=== PATIENT | male | born 1975 | race African-American/Black ===

== ENCOUNTER 2016-11-05 21:19 | Inpatient (IN) | payer MEDICARE, MEDICAID ==
--- NOTE | ~2016-11-05 | HP ---
Unit #: [id number] #: [id number] Patient: PREMA MARTINEZ [id number] [place] [address] [id number] MR#: [id number] NAME: PREMA MARTINEZ ROOM: P130 Age: 41 Sex: M Admission Date: 11/05/2016 : 1975 Attending Physician: Sagar Harkins M.D. Admitting Physician: Sagar Harkins M.D. Primary Care Physician: Primary Care Physician No HISTORY AND PHYSICAL HISTORY OF PRESENT ILLNESS Prema is a 41 year old admitted to [address] [place] [address] with depression verbalizing wanting to hurt himself. He has had numerous admissions to this facility for the same. PAST MEDICAL HISTORY 1. Long history of polysubstance abuse. 2. COPD. 3. History of seizures (?). 4. History of malingering. PAST SURGICAL HISTORY Fractured left forearm with ORIF. ALLERGIES Penicillin. SOCIAL HISTORY Smokes 1/2 pack per day. Drinks alcohol. Has a history of opioid abuse. FAMILY HISTORY Medically noncontributory. REVIEW OF SYSTEMS CONSTITUTIONAL: No fever or chills. HEENT: Denies any sore throat, ear pain or runny nose. CARDIOVASCULAR: Denies chest pain, irregular heart rhythm or palpitations. CHEST: Denies shortness of breath or cough. No hemoptysis. GASTROINTESTINAL: Denies nausea, vomiting, diarrhea or chronic constipation. ENDOCRINE: Denies history of increased thirst or urination. No recent significant weight loss or gain. GENITOURINARY: Denies dysuria, frequency, or hematuria. SKIN: Denies any rashes. HEMATOLOGIC: Denies history of increased bleeding or bruising. MUSCULOSKELETAL: Denies any hot, swollen joints. No generalized muscle pain. NEUROLOGIC: Denies problems with vision or speech. No frequent, severe headaches. No numbness, tingling or weakness in any extremities. Denies loss of bladder or bowel control. CURRENT MEDICATIONS 1. Nicotine patch 14 mg daily. Unit #: [id number] #: [id number] Patient: PREMA MARTINEZ 2. Milk of Magnesia p.r.n. 3. Maalox p.r.n. 4. Tylenol p.r.n. 5. Seroquel 200 mg q.h.s. PHYSICAL EXAMINATION GENERAL: Alert, well-nourished, in no apparent distress. VITAL SIGNS: Blood pressure 130/72, heart rate 80, respirations 16, temperature 98.6. WEIGHT: 334. HEIGHT: 6 feet 5 inches. SKIN: Warm and dry without rash or lesion. HEENT: Normocephalic. TMs not viewed. Oral and nasal passages clear. Conjunctivae clear. PERRLA. EOMs intact. NECK: Supple without lymphadenopathy or thyromegaly. HEART: Regular rate and rhythm without murmur. LUNGS: Clear. ABDOMEN: Soft, nontender. : Not done. EXTREMITIES: No evidence of cyanosis, clubbing or edema. Moves all without focal deficit. NEUROLOGICAL: Grossly within normal limits. Cranial Nerves: II: Visual javier are intact. III, IV AND : Extraocular movements are intact. Pupils are equal, round and reactive to light. V: Facial sensation is grossly normal. VII: Facial movements and expression are normal. VIII: Auditory acuity grossly intact. IX, X: Uvula is midline. Phonation is normal. XI: Patient shrugs shoulders and turns head normally. XII: Tongue protrudes in the midline. Sensory and Motor Function: Sensory and motor sensation is grossly normal. Motor: moves all extremities well. Coordination: Gait is normal. Deep Tendon Reflexes: Intact. IMPRESSION Psychiatric admission. RECOMMENDATIONS PSYCHIATRIC: Per psychiatrist. MEDICAL: See no contraindication to participate in facility's activities. MEDICAL PROGNOSIS Good. MEDICAL CONDITION Stable. Dictated by... Jacqueline Anthony P.A.-C. for Danya Perez/james TD: 11/06/2016 21:13 JOB #: [id number] Unit #: [id number] #: [id number] Patient: PREMA MARTINEZ HISTORY AND PHYSICAL Page 1 of 1 X Jacqueline Anthony HISTORY AND PHYSICAL
--- NOTE | ~2016-11-05 | PA ---
Unit #: [id number] #: [id number] Patient: RICK MARTINEZ [id number] [facility] [address] [place] [address] [id number] MR#: [id number] NAME: RICK MARTINEZ ROOM: 30 Age: 41 Sex: M Admission Date: 11/05/2016 : 1975 Date of Assessment: Attending Physician: Justin Gray M.D. Admitting Physician: Justin Gray M.D. Primary Care Physician: Primary Care Physician No PSYCHIATRIC ASSESSMENT INFORMANTS Patient, partially reliable; OLOP, reliable. CHIEF COMPLAINT "Real messed up". HISTORY OF PRESENT ILLNESS The patient is a 41-year-old man with multiple admissions to this facility, who reports that his psychosocial situation has become so stressful that he was unable to contract for safety outside of the hospital. He stated that he was being "played" for his disability money by his family. He was unable to contract for safety and was readmitted for stabilization. PAST PSYCHIATRIC HISTORY The patient has a history of multiple admissions to this facility under the care of Dr. Gray. Please see his records for previous information. FAMILY PSYCHIATRIC HISTORY Noncontributory. SOCIAL HISTORY The patient is single and living with family. Please see previous social history for details. PAST MEDICAL HISTORY Reviewed with no changes. MEDICATIONS Seroquel. ALLERGIES Penicillin and lactose intolerance. SUBSTANCE USE HISTORY The patient has an erratic history of chemical dependence. MENTAL STATUS EXAMINATION The patient presented as a mildly obese man, who appeared his stated age. He was cooperative with the examination. His mood was irritable with a congruent affect. He was alert and fully oriented with no evidence of Unit #: [id number] #: [id number] Patient: RICK MARTINEZ psychosis. He continued to report suicidal ideation, but denied homicidal ideation. Insight and judgment, fair. Fund of knowledge and abstraction, fair. ASSETS AND LIABILITIES The patient knows local resources and presents voluntarily for treatment. Liabilities include frequent hospitalization and erratic compliance. ADMITTING DIAGNOSES [place] I: Dysthymic disorder, F34.1. Major depressive disorder. [place] II: Antisocial personality disorder. [place] III: None acute. PSYCHIATRIC PLAN The patient was admitted and returned to his previous medications. He will enroll in psychotherapy groups and activities with a reality based focus. TREATMENT GOALS Resolution of SI, improvement in insight, and improvement in coping skills. DISCHARGE PLANNING Follow up with [facility]. ESTIMATED LENGTH OF STAY 5 days. Dictated by... Sagar Harkins M.D. JERSON/alex TD: 01/19/2017 11:53 JOB #: [id number] PSYCHIATRIC ASSESSMENT Page 1 of 1 X Sagar Harkins MD X PSYCHIATRIC ASSESSMENT
--- NOTE | ~2016-11-05 | PN ---
Unit #: [id number] #: [id number] Patient: RICK MARTINEZ [id number] [facility] [address] [place] [address] [id number] MR#: [id number] NAME: RICK MARTINEZ ROOM: 30 Age: 41 Sex: M Admission Date: 11/05/2016 : 1975 Attending Physician: Justin Gray M.D. Admitting Physician: Justin Gray M.D. Primary Care Physician: Primary Care Physician Kimberlee MONTAÑO PROGRESS NOTES DATE 11/10/2016 DISCUSSION The patient continues to complain of hopeless and suicidal ideation related to his current living situation. Once again the patient finds himself homeless and penniless without resources until "I get paid again." Realistic expectations within inpatient care are discussed with the patient at some length today. Dictated by... Justin Gray M.D. CB/abi TD: 11/11/2016 00:57 JOB #: [id number] [facility] PROGRESS NOTES Page 1 of 1 X Justin Gray MD PROGRESS NOTE
--- NOTE | ~2016-11-05 | PN ---
Unit #: [id number] #: [id number] Patient: RICK MARTINEZ [id number] [facility] [address] [place] [address] [id number] MR#: [id number] NAME: RICK MARTINEZ ROOM: 30 Age: 41 Sex: M Admission Date: 11/05/2016 : 1975 Attending Physician: Justin Gray M.D. Admitting Physician: Justin Gray M.D. Primary Care Physician: Primary Care Physician Kimberlee MONTAÑO PROGRESS NOTES DATE 11/14/2016 DISCUSSION The patient is noted to be jovially interacting with peers prior to becoming aware that he is under the observation of this physician. Once interview begins, however, the patient assumes a hangdog attitude, continued to complain of dysphoric mood related to his current homeless situation. I have again expressed to the patient realistic expectations of inpatient care, and I have told him to expect discharge within the next day or so. Dictated by... Justin Gray M.D. CB/berhane TD: 11/14/2016 15:06 JOB #: [id number] [facility] PROGRESS NOTES Page 1 of 1 X Justin Gray MD PROGRESS NOTE
--- NOTE | ~2016-11-05 | PN ---
Unit #: [id number] #: [id number] Patient: RICK MARTINEZ [id number] [facility] [address] [place] [address] [id number] I MR#: [id number] NAME: RICK MARTINEZ ROOM: 30 Age: 41 Sex: M Admission Date: 11/05/2016 : 1975 Attending Physician: Justin Gray M.D. Admitting Physician: Justin Gray M.D. Primary Care Physician: Primary Care Physician Kimberlee MONTAÑO PROGRESS NOTES DATE 11/16/2016 DISCUSSION The patient is complaining of poor sleep and request an increase in his Seroquel dose. We will increase to 300 mg. I expect a.m. discharge and the patient is informed of same. Dictated by... Justin Gray M.D. CB/abi TD: 11/17/2016 03:29 JOB #: [id number] [facility] PROGRESS NOTES Page 1 of 1 X Justin Gray MD PROGRESS NOTE
--- NOTE | ~2016-11-05 | DS ---
Unit #: [id number] #: [id number] Patient: RICK MARTINEZ [id number] [facility] [address] [place] [address] [id number] I MR#: [id number] NAME: RICK MARTINEZ ROOM: 30 Age: 41 Sex: M Admission Date: 11/05/2016 : 1975 Discharge Date: 11/17/2016 Attending Physician: Justin Gray M.D. Primary Care Physician: Primary Care Physician No DISCHARGE SUMMARY REASON FOR ADMISSION The patient is a 41-year-old male admitted after he had presented to this facility claiming to be suicidal after having been rendered once again homeless. HOSPITAL COURSE The patient was admitted to the [address] [place] [address] and placed on suicide precautions. The patient's care was assumed by this physician on 11/10/2016. The patient was continued on Seroquel with dosage increase to 300 mg. No other medication changes were undertaken. During the patient's stay in the hospital, he continued to insist that he be provided with lodging once he had left the hospital. It was as always explained to the patient that this could not be arranged. Finally, by 11/17, the patient was found once again to be absent from therapeutic activity after having been gently confronted regarding his failure to participate within the therapeutic milieu. It was clear at that point that the patient was not benefitting from ongoing hospitalization and discharge was ordered. The patient was given several days notice prior to his discharge so that he could make arrangements for disposition but to the knowledge of this physician, made no efforts to arrange for any disposition apart from going to a homeless usp. DISCHARGE DIAGNOSES 1. Dysthymic disorder. 2. Antisocial personality disorder. DISCHARGE MEDICATIONS The patient is discharged on the following medication, Seroquel 300 mg at bedtime for mood stabilization. PROGNOSIS Considered poor given his lack of resources and the profundity of his sociopathy. DIET AND ACTIVITY No dietary or physical restrictions were placed on the patient at time of discharge. Dictated by... Unit #: [id number] #: [id number] Patient: RICK MARTINEZ Justin Gray M.D. CB/james TD: 11/17/2016 15:03 JOB #: [id number] DISCHARGE SUMMARY Page 1 of 1 X Justin Gray MD DISCHARGE SUMMARY
--- NOTE | ~2016-11-05 | PN ---
Unit #: [id number] #: [id number] Patient: RICK MARTINEZ [id number] [facility] [address] [place] [address] [id number] I MR#: [id number] NAME: RICK MARTINEZ ROOM: 30 Age: 41 Sex: M Admission Date: 11/05/2016 : 1975 Attending Physician: Justin Gray M.D. Admitting Physician: Justin Gray M.D. Primary Care Physician: Kimberlee Primary Care Physician DANYEL PROGRESS NOTES DATE 11/12/2016. DISCUSSION The patient is found in his room today during a therapeutic activity and was sternly confronted regarding his failure to participate. He continues to complain that he has not been given information regarding homeless resources. His expectations of inpatient care have been formally redirected and it is my expectation that the patient should be discharged by the end of the week. Dictated by... Justin Gray M.D. CB/gz TD: 11/12/2016 13:45 JOB #: [id number] [facility] PROGRESS NOTES Page 1 of 1 X Justin Gray MD X PROGRESS NOTE
--- NOTE | ~2016-11-05 | PN ---
Unit #: [id number] #: [id number] Patient: RICK MARTINEZ [id number] [facility] [address] [place] [address] [id number] I MR#: [id number] NAME: RICK MARTINEZ ROOM: P130 Age: 41 Sex: M Admission Date: 11/05/2016 : 1975 Attending Physician: Justin Gray M.D. Admitting Physician: Justin Gray M.D. Primary Care Physician: Primary Care Physician Kimberlee MONTAÑO PROGRESS NOTES DATE 11/13/2016 DISCUSSION The patient remains seclusive to room with little participation within the therapeutic milieu. He continues to lament his inability to afford what he considers suitable housing. I have certainly redirected the patient's expectations of inpatient care today and expect a.m. discharge. Dictated by... Justin Gray M.D. CB/bzg TD: 11/13/2016 14:43 JOB #: [id number] [facility] PROGRESS NOTES Page 1 of 1 X Justin Gray MD PROGRESS NOTE
--- NOTE | ~2016-11-05 | PN ---
Unit #: [id number] #: [id number] Patient: RICK MARTINEZ [id number] [facility] [address] [place] [address] [id number] I MR#: [id number] NAME: RICK MARTINEZ ROOM: 30 Age: 41 Sex: M Admission Date: 11/05/2016 : 1975 Attending Physician: Justin Gray M.D. Admitting Physician: Justin Gray M.D. Primary Care Physician: Primary Care Physician Kimberlee MONTAÑO PROGRESS NOTES DATE 11/11/2016 DISCUSSION The patient seems much brighter today and voices no suicidal ideation. He states that he wishes to see the social scientist "so he can find me a room." I have explained to the patient that this will not occur, and that he will be given information regarding homeless facilities outside the hospital. Dictated by... Justin Gray M.D. CB/bzkenya TD: 11/11/2016 14:23 JOB #: [id number] [facility] PROGRESS NOTES Page 1 of 1 X Justin Gray MD X PROGRESS NOTE
--- NOTE | ~2016-11-05 | PN ---
Unit #: [id number] #: [id number] Patient: RICK MARTINEZ [id number] [facility] [address] [place] [address] [id number] MR#: [id number] NAME: RICK MARTINEZ ROOM: 30 Age: 41 Sex: M Admission Date: 11/05/2016 : 1975 Attending Physician: Justin Gray M.D. Admitting Physician: Justin Gray M.D. Primary Care Physician: Primary Care Physician Kimberele MONTAÑO PROGRESS NOTES DATE 11/15/2016 DISCUSSION The patient continues to endorse positive suicidal ideation and hopelessness. I again firmly redirected his expectations of inpatient care but given his ongoing threats of suicide including a specific threat to "jump in the river," I feel unable to release the patient from the hospital today. Dictated by... Justin Gray M.D. CB/james TD: 11/15/2016 15:27 JOB #: [id number] [facility] PROGRESS NOTES Page 1 of 1 X Justin Gray MD X PROGRESS NOTE
[~2016-11-05 21:19] MED LIST: ACETAMINOPHEN325 MG PO; ALBUTEROL17 GM INH; GRALISE1 EACH PO; LYRICA; MOTRIN600 MG PO; NO MEDICATIONS; OXYCODONE-ACET1 EAC1 PO; PAIN RELIEF325 M1; PERCOCET 10-651 EACH PO; SOLU MEDROL IV; TOPAMAX PO; ZOLOFT100 MG PO
[2016-11-06 12:28] LABS: BASOPHIL% 0.5 % (0-2.5); EOSINOPHIL# 0.2 X10e3 (0-0.7); EOSINOPHIL% 3.1 % (0.0-7.0); HEMATOCRIT 45.1 % (38.0-50.0); HEMOGLOBIN 14.7 gm/dL (13.0-16.0); LYMPHOCYTE# 2.1 X10e3 (1.0-3.5); MEAN CELL VOLUME 92.5 FL (83-96); MEAN CORPUSCULAR HEMOGLOBIN 30.2 PG (28-34); MEAN CORPUSCULAR HGB CONC 32.6 g/dL (30-36); MEAN PLATELET VOLUME 8.4 FL (6.5-11.5); MONOCYTE# 0.4 X10e3 (0-1.0); NEUTROPHIL# 2.3 X10e3 (1.5-7.1); NEUTROPHIL% 45.4 % (40-75); PLATELET COUNT 278 X10e3 (140-420); RED BLOOD COUNT 4.88 X10e (3.90-5.60); RED CELL DISTRIBUTION WIDTH 14.8 % (11.0-15.5)
[2016-11-06 12:41] LABS: ALBUMIN SERUM 3.9 g/dL (3.5-5.0); BILIRUBIN,TOTAL 0.7 mg/dL (0.2-2.0); CALCIUM SERUM 9.3 mg/dL (8.4-10.2); CREATININE SERUM 0.7 mg/dL (0.6-1.4); GLOM FILT RATE Estimated 135.9 mL/min (>60); POTASSIUM 4.3 mmol/L (3.5-5.1); PROTEIN TOTAL SERUM 6.9 g/dL (6.0-8.3)
[2016-11-06 12:43] LABS: DIFF IND NO
== END 2016-11-17 14:27 | disposition home or self-care (01) | DRG 881 ==
LOC: P1S 21:19
PROVIDERS: Psychiatry & Neurology Psychiatry
DX: F34.1 Dysthymic disorder (principal); J44.9 Chronic obstructive pulmonary disease, unspecified; F60.2 Antisocial personality disorder; F17.210 Nicotine dependence, cigarettes, uncomplicated; Z88.0 Allergy status to penicillin; Z59.0 Homelessness
CPT/HCPCS: 80053; 85025

== ENCOUNTER 2016-12-12 20:32 | Inpatient (IN) | payer OTHER ==
--- NOTE | ~2016-12-12 | PN ---
Unit #: [id number] #: [id number] Patient: RICK MARTINEZ [id number] [facility] [address] [place] [address] [id number] MR#: [id number] NAME: RICK MARTINEZ ROOM: [facility] Age: 41 Sex: M Admission Date: 12/13/2016 : 1975 Attending Physician: Justin Gray M.D. Admitting Physician: Justin Gray M.D. Primary Care Physician: Primary Care Physician Kimberlee MONTAÑO PROGRESS NOTES DATE 12/15/2016 DISCUSSION The patient is actually attending a group therapy on the unit today which is unusual for him. He continues to complain of dysphoric mood related to his current homeless status. Dictated by... Justin Gray M.D. CB/abi TD: 12/16/2016 02:32 JOB #: [id number] [facility] PROGRESS NOTES Page 1 of 1 X Justin Gray MD PROGRESS NOTE
--- NOTE | ~2016-12-12 | PN ---
Unit #: [id number] #: [id number] Patient: RICK MARTINEZ [id number] [facility] [address] [place] [address] [id number] I MR#: [id number] NAME: RICK MARTINEZ ROOM: P121 Age: 41 Sex: M Admission Date: 12/13/2016 : 1975 Attending Physician: Justin Gray M.D. Admitting Physician: Justin Gray M.D. Primary Care Physician: Primary Care Physician Kimberlee MONTAÑO PROGRESS NOTES DATE 12/17/2016 DISCUSSION The patient is abed today. He states that he is experiencing a.m. discharge, and we will expect to order discharge at that time. Dictated by... Justin Gray M.D. CB/berhane TD: 12/17/2016 14:09 JOB #: [id number] [facility] PROGRESS NOTES Page 1 of 1 X Justin Gray MD X PROGRESS NOTE
--- NOTE | ~2016-12-12 | PA ---
Unit #: [id number] #: [id number] Patient: RICK MARTINEZ [id number] [facility] [address] [place] [address] [id number] MR#: [id number] NAME: RICK MARTINEZ ROOM: P121 Age: 41 Sex: M Admission Date: 12/13/2016 : 1975 Date of Assessment: 12/13/2016 Attending Physician: Justin Gray M.D. Admitting Physician: Justin Gray M.D. Primary Care Physician: Primary Care Physician No PSYCHIATRIC ASSESSMENT IDENTIFYING INFORMATION The patient is a 41-year-old single homeless male admitted after voicing suicidal ideation at [facility]. INFORMANT(S) Patient and chart. RELIABILITY Good. CHIEF COMPLAINT None given. HISTORY OF PRESENT ILLNESS The patient is a 41-year-old male who is presently homeless. He is admitted after he had presented to [facility] voicing positive suicidal ideation related to the anniversary of the of his mother. The patient remains homeless and states that he is "bouncing from retirement to retirement." He is currently on Seroquel 300 mg at h.s. This is the only prescribed psychotropic medication. He continues to endorse positive suicidal ideation when seen today though he is noted to be reading comfortably in his room prior to evaluation. For a more complete history of present illness, please refer to multiple previous dictated notes. PAST PSYCHIATRIC HISTORY Reviewed, no changes. FAMILY HISTORY Noncontributory. SOCIAL HISTORY Reviewed, no changes. MEDICAL HISTORY Reviewed, no changes. MEDICATION HISTORY Seroquel. ALLERGIES Penicillin, milk. Unit #: [id number] #: [id number] Patient: RICK MARTINEZ MENTAL STATUS EXAM At this time, reveals the patient to be an obese male appearing his stated age. He is in no apparent physical distress at time of examination. He is awake, alert, oriented in all spheres. His mood is mildly dysphoric. His affect congruent. Speech is generally relevant and coherent. There are no gross deficits in memory or cognition noted. Intelligence is judged to be in the average range based on fund of knowledge. The patient is cooperative throughout the interview. He is currently endorsing positive suicidal ideation. He denies homicidal ideation. He denies any psychotic symptoms. His judgement and insight appear to be reasonably intact. ASSETS AND LIABILITIES Patient's assets to be assessed. Liabilities, lack of resources, homelessness. ADMITTING DIAGNOSES 1. Dysthymic disorder. 2. Antisocial personality disorder. PSYCHIATRIC PLAN/TREATMENT GOALS The patient remains hospitalized for safety and stabilization. We will continue the patient's previously prescribed Seroquel and I will ask the patient's social media content manager to see him regarding his homeless status. ESTIMATED LENGTH OF STAY Five to seven days. Dictated by... Justin Gray M.D. LANE/james TD: 12/13/2016 16:06 JOB #: [id number] PSYCHIATRIC ASSESSMENT Page 1 of 1 X Justin Gray MD X PSYCHIATRIC ASSESSMENT
--- NOTE | ~2016-12-12 | PN ---
Unit #: [id number] #: [id number] Patient: RICK MARTINEZ [id number] [facility] [address] [place] [address] [id number] MR#: [id number] NAME: RICK MARTINEZ ROOM: P121 Age: 41 Sex: M Admission Date: 12/13/2016 : 1975 Attending Physician: Justin Gray M.D. Admitting Physician: Justin Gray M.D. Primary Care Physician: Primary Care Physician Kimberlee MONTAÑO PROGRESS NOTES DATE 12/14/2016 DISCUSSION The patient voices no new complaints today but continues to endorse positive suicidal ideation while appearing quite comfortable in his interactions with peers and staff. Dictated by... Justin Gray M.D. CB/abi TD: 12/15/2016 21:15 JOB #: [id number] [facility] PROGRESS NOTES Page 1 of 1 X Justin Gray MD X PROGRESS NOTE
--- NOTE | ~2016-12-12 | HP ---
Unit #: [id number] #: [id number] Patient: RICK MARTINEZ [id number] [place] [address] [id number] MR#: [id number] NAME: RICK MARTINEZ ROOM: P121 Age: 41 Sex: M Admission Date: 12/13/2016 : 1975 Attending Physician: Justin Gray M.D. Admitting Physician: Justin Gray M.D. Primary Care Physician: Primary Care Physician No HISTORY AND PHYSICAL HISTORY OF PRESENT ILLNESS The patient is a 41-year-old male who states he is here due to depression. PAST MEDICAL HISTORY Significant for multiple sclerosis. PAST SURGICAL HISTORY Significant for biopsy of some sort in 2005. ALLERGIES Penicillin, milk and oats. SOCIAL HISTORY Positive for smoking and alcohol. FAMILY HISTORY Noncontributory. REVIEW OF SYSTEMS CONSTITUTIONAL: No fever or chills. HEENT: Denies any sore throat, ear pain or runny nose. CARDIOVASCULAR: Denies chest pain, irregular heart rhythm or palpitations. CHEST: Denies shortness of breath or cough. No hemoptysis. GASTROINTESTINAL: Denies nausea, vomiting, diarrhea or chronic constipation. ENDOCRINE: Denies history of increased thirst or urination. No recent significant weight loss or gain. GENITOURINARY: Denies dysuria, frequency, or hematuria. SKIN: Denies any rashes. HEMATOLOGIC: Denies history of increased bleeding or bruising. MUSCULOSKELETAL: Denies any hot, swollen joints. No generalized muscle pain. NEUROLOGIC: Denies problems with vision or speech. No frequent, severe headaches. No numbness, tingling or weakness in any extremities. Denies loss of bladder or bowel control. CURRENT MEDICATIONS Seroquel 300 mg p.o. q.h.s. PHYSICAL EXAMINATION VITAL SIGNS: Temperature not available, blood pressure 131/81, heart rate 87, respirations 18. HEIGHT: 6 feet 5 inches. Unit #: [id number] #: [id number] Patient: RICK MARTINEZ WEIGHT: 347 pounds. SKIN: Warm and dry without rash or lesion. Multiple tattoos to the right deltoid, bilateral chest, right scapular area, left arm. HEENT: Normocephalic. TMs not viewed. Oral and nasal passages clear. Conjunctivae clear. PERRLA. EOMs intact. NECK: Supple without lymphadenopathy or thyromegaly. HEART: Regular rate and rhythm without murmur. LUNGS: Clear. ABDOMEN: Soft, nontender, without masses or hepatosplenomegaly. : Not done. EXTREMITIES: No evidence of cyanosis, clubbing or edema. Moves all without focal deficit. NEUROLOGICAL: Grossly within normal limits. Cranial Nerves: II: Visual javier are intact. III, IV AND : Extraocular movements are intact. Pupils are equal, round and reactive to light. V: Facial sensation is grossly normal. VII: Facial movements and expression are normal. VIII: Auditory acuity grossly intact. IX, X: Uvula is midline. Phonation is normal. XI: Patient shrugs shoulders and turns head normally. XII: Tongue protrudes in the midline. Sensory and Motor Function: Sensory and motor sensation is grossly normal. Motor: moves all extremities well. Coordination: Gait is normal. Deep Tendon Reflexes: Intact. IMPRESSION Psychiatric admission. RECOMMENDATIONS PSYCHIATRIC: Per psychiatrist. MEDICAL: No contraindications to participate in facility's activities. MEDICAL PROGNOSIS Good. Dictated by... Rafael Clifford/james TD: 12/13/2016 18:52 JOB #: [id number] HISTORY AND PHYSICAL Page 1 of 1 X Sandra Pardo APR X HISTORY AND PHYSICAL
--- NOTE | ~2016-12-12 | DS ---
Unit #: [id number] #: [id number] Patient: RICK MARTINEZ [id number] [facility] [address] [place] [address] [id number] MR#: [id number] NAME: RICK MARTINEZ ROOM: [facility] Age: 41 Sex: M Admission Date: 12/13/2016 : 1975 Discharge Date: 12/18/2016 Attending Physician: Justin Gray M.D. Primary Care Physician: No Primary Care Physician DISCHARGE SUMMARY REASON FOR ADMISSION Patient is a 41-year-old homeless, -Malawian male admitted, claiming to be suicidal. HOSPITAL COURSE The patient is admitted to the [address] [place] [address] unit and placed on suicide precautions. Home medications were continued. The patient's participation within the therapeutic milieu was a bit improved during this hospitalization. By 12/18/2016 the patient requested discharge and it was so ordered. FINAL DIAGNOSES 1. Dysthymic disorder. 2. Social personal disorder. 3. Obesity. DISPOSITION ON DISCHARGE The patient is discharged on the following medications: Seroquel 300 mg q.h.s. for mood stabilization. DIET AND ACTIVITY No dietary or physical restrictions were placed upon the patient at the time of discharge. FOLLOWUP Followup will take place through the auspices of community mental health resources. PROGNOSIS The patient's prognosis is considered fair. Dictated by... Justin Gray M.D. CB/oswald TD: 12/19/2016 09:43 JOB #: [id number] Unit #: [id number] #: [id number] Patient: RICK MARTINEZ DISCHARGE SUMMARY Page 1 of 1 X Justin Gray MD X DISCHARGE SUMMARY
--- NOTE | ~2016-12-12 | PN ---
Unit #: [id number] #: [id number] Patient: RICK MARTINEZ [id number] [facility] [address] [place] [address] [id number] MR#: [id number] NAME: RICK MARTINEZ ROOM: P121 Age: 41 Sex: M Admission Date: 12/13/2016 : 1975 Attending Physician: Justin Gray M.D. Admitting Physician: Justin Gray M.D. Primary Care Physician: Primary Care Physician Kimberlee MONTAÑO PROGRESS NOTES DATE 12/16/2016 DISCUSSION The patient is move active within the therapeutic milieu. He continues to endorse hopelessness and suicidal ideation during today's interview. He has been more active within the therapeutic milieu than during previous hospitalizations. Dictated by... Justin Gray M.D. CB/berhane TD: 12/16/2016 14:56 JOB #: [id number] DANYEL PROGRESS NOTES Page 1 of 1 X Justin Gray MD PROGRESS NOTE
== END 2016-12-18 14:50 | disposition home or self-care (01) | DRG 881 ==
LOC: P1S 12-13 00:54
DX: F34.1 Dysthymic disorder (principal); R45.851 Suicidal ideations; Z68.41 Body mass index [BMI] 40.0-44.9, adult; Z59.0 Homelessness; F60.2 Antisocial personality disorder; Z88.0 Allergy status to penicillin; Z91.011 Allergy to milk products; G35 Multiple sclerosis; Z91.018 Allergy to other foods; F17.210 Nicotine dependence, cigarettes, uncomplicated; E66.9 Obesity, unspecified

== ENCOUNTER 2017-01-06 18:00 | Inpatient (IN) | payer OTHER ==
--- NOTE | ~2017-01-06 | PA ---
Unit #: [id number] #: [id number] Patient: RICK MARTINEZ [id number] [facility] [address] [place] [address] [id number] MR#: [id number] NAME: RICK MARTINEZ ROOM: P132 Age: 41 Sex: M Admission Date: 01/06/2017 : 1975 Date of Assessment: 01/07/2017 Attending Physician: Justin Gray M.D. Admitting Physician: Justin Gray M.D. Primary Care Physician: Primary Care Physician No PSYCHIATRIC ASSESSMENT IDENTIFYING INFORMATION The patient is a 41-year-old male well-known to this physician admitted in transfer from [facility] where he presented voicing positive suicidal ideation. INFORMANT(S) Patient and chart. RELIABILITY Good. CHIEF COMPLAINT None given. HISTORY OF PRESENT ILLNESS The patient is a 41-year-old homeless male admitted after he had presented at [facility] claiming to be homeless. The patient reports that he has been banned from virtually every long term in the city and finds himself unable to find a place to live. He has previously been prescribed Seroquel at this facility but his compliance with medications has always been questionable. He denies abuse of any psychoactive substances. The patient continues to endorse positive suicidal ideation and hopelessness during today's interview. For a more complete history of present illness, please refer to previous dictated notes. PAST PSYCHIATRIC HISTORY Reviewed, no changes. FAMILY HISTORY/SOCIAL HISTORY Reviewed, no changes. MEDICAL HISTORY Reviewed, no changes. MEDICATION HISTORY Seroquel. ALLERGIES Penicillin. MENTAL STATUS EXAM At this time, reveals the patient to be a large statured obese Unit #: [id number] #: [id number] Patient: IRCK MARTINEZ Lao male appearing his stated age. He is in no apparent physical distress at time of examination. He is awake, alert, and oriented in all spheres. His mood is somewhat exaggeratedly dysphoric. His affect is constricted. Speech is generally relevant and coherent. There are no gross deficits in memory or cognition noted. Intelligence is judged to be in the average range based on fund of knowledge. The patient is generally cooperative during interview. He continues to endorse positive suicidal ideation. He denies homicidal ideation. He denies any psychotic symptoms. His judgement and insight appear to be at baseline. ASSETS AND LIABILITIES Patient's assets to be assessed. Liabilities, homelessness, lack of resources, sociopathy. ADMITTING DIAGNOSES 1. Dysthymic disorder. 2. Antisocial personality disorder. PSYCHIATRIC PLAN/TREATMENT GOALS The patient remains hospitalized for safety and stabilization. Suicide precautions are in place and we will continue Seroquel. The patient's expectations of inpatient care are today gently but firmly redirected particularly with regards to this facility's ability to "place him" in any sort of disposition given the fact that he has been barred from virtually every homeless long term in [facility] given his obnoxious and sociopathic behavior. ESTIMATED LENGTH OF STAY Seven days. Dictated by... Justin Gray M.D. LANE/james TD: 01/07/2017 15:02 JOB #: [id number] PSYCHIATRIC ASSESSMENT Page 1 of 1 X Justin Gray MD X PSYCHIATRIC ASSESSMENT
--- NOTE | ~2017-01-06 | HP ---
Unit #: [id number] #: [id number] Patient: PREMA MARTINEZ [id number] [place] [address] [id number] MR#: [id number] NAME: PREMA MARTINEZ ROOM: P132 Age: 41 Sex: M Admission Date: 01/06/2017 : 1975 Attending Physician: Justin Gray M.D. Admitting Physician: Justin Gray M.D. Primary Care Physician: Primary Care Physician No HISTORY AND PHYSICAL HISTORY OF PRESENT ILLNESS Prema is a 41 year old admitted to [address] [place] [address] with depression and verbalizing wanting to hurt himself. PAST MEDICAL HISTORY 1. Long history of polysubstance abuse 2. History of malingering 3. COPD 4. History of seizures (?) PAST SURGICAL HISTORY Fractured left forearm with ORIF ALLERGIES Penicillin SOCIAL HISTORY Smokes one-half pack per day. Drinks alcohol. Has a history of opioid abuse. FAMILY HISTORY Medically noncontributory. REVIEW OF SYSTEMS CONSTITUTIONAL: No fever or chills. HEENT: Denies any sore throat, ear pain or runny nose. CARDIOVASCULAR: Denies chest pain, irregular heart rhythm or palpitations. CHEST: Denies shortness of breath or cough. No hemoptysis. GASTROINTESTINAL: Denies nausea, vomiting, diarrhea or chronic constipation. ENDOCRINE: Denies history of increased thirst or urination. No recent significant weight loss or gain. GENITOURINARY: Denies dysuria, frequency, or hematuria. SKIN: Denies any rashes. HEMATOLOGIC: Denies history of increased bleeding or bruising. MUSCULOSKELETAL: Denies any hot, swollen joints. No generalized muscle pain. NEUROLOGIC: Denies problems with vision or speech. No frequent, severe headaches. No numbness, tingling or weakness in any extremities. Denies loss of bladder or bowel control. CURRENT MEDICATIONS Unit #: [id number] #: [id number] Patient: PREMA MARTINEZ 1. Norvasc 5 mg q day 2. Milk of Magnesia p.r.n. 3. Maalox p.r.n. 4. Tylenol p.r.n. 5. Seroquel 300 mg q.h.s. 6. Nicotine patch 14 mg q day PHYSICAL EXAMINATION GENERAL: Alert, well-nourished, in no apparent distress. VITAL SIGNS: Blood pressure 140/70, heart rate 80, respirations 16, temperature 98.6. WEIGHT: 324 pounds. HEIGHT: 6'5". SKIN: Warm and dry without rash or lesion. HEENT: Normocephalic. TMs not viewed. Oral and nasal passages clear. Conjunctivae clear. Pupils equal, round and reactive to light and accommodation. Extraocular movements intact. NECK: Supple without lymphadenopathy or thyromegaly. HEART: Regular rate and rhythm without murmur. LUNGS: Clear. ABDOMEN: Soft, nontender. : Not done. EXTREMITIES: No evidence of cyanosis, clubbing or edema. Moves all extremities without focal deficit. NEUROLOGICAL: Grossly within normal limits. Cranial Nerves: II: Visual javier are intact. III, IV AND : Extraocular movements are intact. Pupils are equal, round and reactive to light. V: Facial sensation is grossly normal. VII: Facial movements and expression are normal. VIII: Auditory acuity grossly intact. IX, X: Uvula is midline. Phonation is normal. XI: Patient shrugs shoulders and turns head normally. XII: Tongue protrudes in the midline. Sensory and Motor Function: Sensory and motor sensation is grossly normal. Motor: moves all extremities well. Coordination: Gait is normal. Deep Tendon Reflexes: Intact. IMPRESSION Psychiatric admission RECOMMENDATIONS PSYCHIATRIC: Per psychiatrist. MEDICAL: I see no contraindications to participating in facility's activities. MEDICAL PROGNOSIS Good. MEDICAL CONDITION Stable. Dictated by... Jacqueline Anthony P.A.-C. for Esthela Zurita M.D. Unit #: [id number] #: [id number] Patient: PREMA MARTINEZ FLO/abi TD: 01/07/2017 22:41 JOB #: [id number] HISTORY AND PHYSICAL Page 1 of 1 X Jacqueline Anthony HISTORY AND PHYSICAL
[2017-01-07 09:41] LABS: BASOPHIL% 0.5 % (0-2.5); EOSINOPHIL# 0.1 X10e3 (0-0.7); EOSINOPHIL% 2.4 % (0.0-7.0); HEMATOCRIT 42.9 % (38.0-50.0); LYMPHOCYTE# 2.1 X10e3 (1.0-3.5); LYMPHOCYTE% 39.6 % (17.0-45.0); MEAN CELL VOLUME 91.7 FL (83-96); MEAN CORPUSCULAR HEMOGLOBIN 29.8 PG (28-34); MEAN CORPUSCULAR HGB CONC 32.5 g/dL (30-36); MEAN PLATELET VOLUME 8.2 FL (6.5-11.5); MONOCYTE# 0.5 X10e3 (0-1.0); MONOCYTE% 8.5 % (3.0-12.0); NEUTROPHIL# 2.6 X10e3 (1.5-7.1); PLATELET COUNT 285 X10e3 (140-420); RED BLOOD COUNT 4.68 X10e (3.90-5.60); RED CELL DISTRIBUTION WIDTH 15.5 % (11.0-15.5); WHITE BLOOD COUNT 5.3 X10e3 (4.0-10.5)
[2017-01-07 10:00] LABS: DIFF IND NO
[2017-01-07 10:24] LABS: ALBUMIN SERUM 3.9 g/dL (3.5-5.0); BILIRUBIN,TOTAL 1.1 mg/dL (0.2-2.0); BUN/CREATININE RATIO 18.33; CALCIUM SERUM 9.2 mg/dL (8.4-10.2); CREATININE SERUM 0.6 mg/dL (0.6-1.4); GLOM FILT RATE Estimated 144.8 mL/min (>60); POTASSIUM 4.2 mmol/L (3.5-5.1)
== END 2017-01-08 22:24 | disposition home or self-care (01) | DRG 881 ==
LOC: P1S 21:57
PROVIDERS: Specialist
DX: F34.1 Dysthymic disorder (principal); R45.851 Suicidal ideations; F60.2 Antisocial personality disorder; Z88.0 Allergy status to penicillin; Z59.0 Homelessness; F17.210 Nicotine dependence, cigarettes, uncomplicated
CPT/HCPCS: 80053; 85025

== ENCOUNTER 2017-03-13 15:00 | Inpatient (IN) | payer MEDICARE, OTHER ==
--- NOTE | ~2017-03-13 | HP ---
Unit #: [id number] #: [id number] Patient: PREMA MARTINEZ [id number] [place] [address] [id number] MR#: [id number] NAME: PREMA MARTINEZ ROOM: 30 Age: 41 Sex: M Admission Date: 03/13/2017 : 1975 Attending Physician: Justin Gray M.D. Admitting Physician: Justin Gray M.D. Primary Care Physician: Primary Care Physician No HISTORY AND PHYSICAL HISTORY OF PRESENT ILLNESS Prema is a 41-year-old male admitted on 03/13/[address] [place] [address] for suicidal ideation. PAST MEDICAL HISTORY COPD. PAST SURGICAL HISTORY Left arm fracture with surgical repair. SOCIAL HISTORY Smokes half pack of cigarettes daily. Occasional alcohol use. Denies any illegal drug use. He is currently single and homeless. FAMILY HISTORY Noncontributory. REVIEW OF SYSTEMS CONSTITUTIONAL: No fever or chills. HEENT: Denies any sore throat, ear pain or runny nose. CARDIOVASCULAR: Denies chest pain, irregular heart rhythm or palpitations. CHEST: Denies shortness of breath or cough. No hemoptysis. GASTROINTESTINAL: Denies nausea, vomiting, diarrhea or chronic constipation. ENDOCRINE: Denies history of increased thirst or urination. No recent significant weight loss or gain. GENITOURINARY: Denies dysuria, frequency, or hematuria. SKIN: Denies any rashes. HEMATOLOGIC: Denies history of increased bleeding or bruising. MUSCULOSKELETAL: Denies any hot, swollen joints. No generalized muscle pain. NEUROLOGIC: Denies problems with vision or speech. No frequent, severe headaches. No numbness, tingling or weakness in any extremities. Denies loss of bladder or bowel control. CURRENT MEDICATIONS None. ALLERGIES To penicillin. PHYSICAL EXAMINATION GENERAL: Alert, oriented, no acute distress. Unit #: [id number] #: [id number] Patient: PREMA MARTINEZ VITAL SIGNS: Blood pressure 119/80, heart rate 79, respirations 18. SKIN: Warm, dry. No rashes or lesions, track villavicencio, cuts, etc. HEENT: Normocephalic. TMs not viewed. Oronasal passages clear. Conjunctivae clear. PERRLA. EOM is intact. NECK: No lymphadenopathy or thyromegaly. HEART: Regular rate and rhythm. No murmur, gallop, or rub. LUNGS: Clear to auscultation bilaterally. ABDOMEN: Soft, nontender without palpable masses or hepatosplenomegaly. : Not assessed. EXTREMITIES: No evidence of cyanosis, clubbing, or edema. Moves all extremities independently without obvious deficit. NEUROLOGICAL: Grossly within normal limits. Cranial Nerves: II: Visual javier are intact. III, IV AND : Extraocular movements are intact. Pupils are equal, round and reactive to light. V: Facial sensation is grossly normal. VII: Facial movements and expression are normal. VIII: Auditory acuity grossly intact. IX, X: Uvula is midline. Phonation is normal. XI: Patient shrugs shoulders and turns head normally. XII: Tongue protrudes in the midline. Sensory and Motor Function: Sensory and motor sensation is grossly normal. Motor: moves all extremities well. Coordination: Gait is normal. Deep Tendon Reflexes: Intact. IMPRESSION Psychiatric admission. RECOMMENDATIONS PSYCHIATRIC: Per psychiatrist. MEDICAL: No contraindication to participate in this facility's activities. MEDICAL PROGNOSIS Good. MEDICAL CONDITION Stable. Dictated by... Rafael Peterson TD: 03/14/2017 14:41 JOB #: [id number] HISTORY AND PHYSICAL Page 1 of 1 X CESIA FUNES APRN HISTORY AND PHYSICAL
--- NOTE | ~2017-03-13 | DS ---
Unit #: [id number] #: [id number] Patient: RICK MARTINEZ [id number] [facility] [address] [place] [address] [id number] MR#: [id number] NAME: RICK MARTINEZ ROOM: 30 Age: 41 Sex: M Admission Date: 03/13/2017 : 1975 Discharge Date: 03/16/2017 Attending Physician: Justin Gray M.D. Primary Care Physician: Primary Care Physician No DISCHARGE SUMMARY REASON FOR ADMISSION The patient is a 41-year-old male, admitted to the [address] [place] [address] unit after presenting to this facility claiming to be suicidal. HOSPITAL COURSE The patient was admitted to the [address] [place] [address] unit and placed on suicide precautions. He was restarted on previously prescribed Seroquel and Proventil HFA. The patient's stay in the hospital was a brief and uneventful one. By 03/16/2017, he was in bright spirits and denied suicidal ideation. Discharge was ordered. FINAL DIAGNOSES Dysthymic disorder, rule out malingering antisocial personality disorder; obesity; chronic obstructive pulmonary disease, disposition on multiple sclerosis per patient's history. DISPOSITION ON DISCHARGE The patient will be provided a 14-day supply of Seroquel 300 mg at bedtime for mood stabilization, Norvasc 5 mg daily will be continued for hypertension as well Proventil HFA 2 puffs q.4 hours for shortness of air. No dietary or physical restrictions were placed on the patient discharge. FOLLOWUP Followup will take place through the auspices of community mental health resources. PROGNOSIS Remains guarded. Dictated by... Justin Gray M.D. CB/alex TD: 03/18/2017 07:40 JOB #: [id number] Unit #: [id number] #: [id number] Patient: RICK MARTINEZ DISCHARGE SUMMARY Page 1 of 1 X Justin Gray MD X DISCHARGE SUMMARY
--- NOTE | ~2017-03-13 | PA ---
Unit #: [id number] #: [id number] Patient: RICK MARTINEZ [id number] [facility] [address] [place] [address] [id number] MR#: [id number] NAME: RICK MARTINEZ ROOM: 30 Age: 41 Sex: M Admission Date: 03/13/2017 : 1975 Date of Assessment: 03/14/2017 Attending Physician: Justin Gray M.D. Admitting Physician: Justin Gray M.D. Primary Care Physician: Primary Care Physician No PSYCHIATRIC ASSESSMENT IDENTIFYING INFORMATION The patient is a 41-year-old homeless male well known to this physician. He is admitted after he had presented to this facility claiming to be suicidal. CHIEF COMPLAINT None given. INFORMANT(S) Patient and chart, reliability fair. HISTORY OF PRESENT ILLNESS The patient is a 41-year-old male last admitted to this facility in January of this year. He states that he is currently homeless. The patient states that he had been in the [facility] but had been caught smoking marijuana there and was expelled from that program. He is now homeless. He had reported yesterday to this facility claiming to be suicidal with plan to shoot himself. He claims to have ongoing grief related to the of his daughter as a cause for his worsening depression. For more complete history of present illness, please refer to previously dictated notes. PAST PSYCHIATRIC HISTORY Reviewed, no changes. PAST MEDICAL HISTORY Reviewed, no changes. MEDICATIONS None. ALLERGIES Penicillin, milk, oats. FAMILY HISTORY Reviewed, no changes. SOCIAL HISTORY Reviewed, no changes apart from the current homelessness. MENTAL STATUS EXAMINATION Examination at this time reveals the patient to be an obese male appearing stated age. He is in no apparent physical Unit #: [id number] #: [id number] Patient: RICK MARTINEZ distress at the time of examination. He is awake, alert, and oriented in all spheres. His mood is mildly dysphoric, his affect constricted. Speech is generally well coherent. No gross deficits in memory or cognition noted. Intelligence is judged to be in the average range based on fund of knowledge. The patient is cooperative during interview. He continues to endorse positive suicidal ideation. He denies homicidal ideation. He denies any psychotic symptoms. His judgment and insight appear to be reasonably intact. ASSETS AND LIABILITIES The patient's assets are to be assessed. Liabilities: Homelessness, lack of resources, malingering. DIAGNOSTIC IMPRESSION 1. Dysthymic disorder. 2. Malingering. 3. Cannabis use disorder. 4. Obesity. 5. Multiple sclerosis per patient history. TREATMENT PLAN The patient remains hospitalized for safety and stabilization. I will not at this point initiate any psychotropic medications as it has been my feeling that the patient's primary pathology is characterologic in nature, and that there is in fact a healthy dose of malingering evident with every hospitalization here. The patient will participate in appropriate order of milieu activities. ESTIMATED LENGTH OF STAY 3 to 4 days. Dictated by... Justin Gray M.D. Lynda TD: 03/14/2017 12:56 JOB #: [id number] PSYCHIATRIC ASSESSMENT Page 1 of 1 X Justin Gray MD X PSYCHIATRIC ASSESSMENT
--- NOTE | ~2017-03-13 | PN ---
Unit #: [id number] #: [id number] Patient: RICK MARTINEZ [id number] [facility] [address] [place] [address] [id number] MR#: [id number] NAME: RICK MARTINEZ ROOM: 30 Age: 41 Sex: M Admission Date: 03/13/2017 : 1975 Attending Physician: Justin Gray M.D. Admitting Physician: Justin Gray M.D. Primary Care Physician: Primary Care Physician Kimberlee MONTAÑO PROGRESS NOTES DATE 03/15/2017 DISCUSSION The patient is up in the dayroom today and is generally pleasant and cooperative. He is reporting reduction in suicidal ideation and hopeless and is requesting discharge as early as tomorrow. Dictated by... Justin Gray M.D. CB/abi TD: 03/15/2017 22:56 JOB #: [id number] DANYEL PROGRESS NOTES Page 1 of 1 X Justin Gray MD X PROGRESS NOTE
== END 2017-03-16 14:52 | disposition home or self-care (01) | DRG 881 ==
LOC: P1S 18:43
DX: F34.1 Dysthymic disorder (principal); G35 Multiple sclerosis; R45.851 Suicidal ideations; Z76.5 Malingerer [conscious simulation]; E66.9 Obesity, unspecified; F17.210 Nicotine dependence, cigarettes, uncomplicated; Z88.0 Allergy status to penicillin; Z59.0 Homelessness; F12.90 Cannabis use, unspecified, uncomplicated

== ENCOUNTER 2017-03-20 16:11 | Inpatient (IN) | payer MEDICARE, OTHER ==
[~2017-03-20] VITALS: Ht 193 cm; Wt 128.8 kg
--- NOTE | ~2017-03-20 | CO ---
Unit #: [id number] #: [id number] Patient: RICK MARTINEZ [id number] [place] [address] [id number] MR#: [id number] NAME: RICK MARTINEZ ROOM: [facility] Age: 41 Sex: M Admission Date: 03/20/2017 : 1975 Attending Physician: Justin Gray M.D. Primary Care Physician: Primary Care Physician No Consultation Date: 03/22/2017 CONSULTATION REPORT REASON FOR CONSULT Coughing up green sputum. SUBJECTIVE The patient reports that he has not had a cigarette since admission on 18 and since then, he has been coughing up mucus that ranges in color from green to black to brown. He reports that this happens every time he quit smoking for short run of time. He denies actually having a cough when he does cough to clear his lung, it is immediately discolored. He denies any shortness of breath or wheezing. He overall feels well. OBJECTIVE VITAL SIGNS: Stable. LUNGS: Clear to auscultation bilaterally. Physical examination is otherwise unremarkable. ASSESSMENT Discolored sputum from smoking. PLAN The patient declines any medication and any further treatments. He declines to stop smoking when he leaves the hospital. No further plan necessary. Dictated by... Rafael Medina/alex TD: 03/22/2017 21:10 JOB #: [id number] CONSULTATION REPORT Page 1 of 1 X UMAIR EVANGELISTA APRN X CONSULTATION REPORT
--- NOTE | ~2017-03-20 | HP ---
Unit #: [id number] #: [id number] Patient: RICK MARTINEZ [id number] [facility] [address] [place] [address] [id number] MR#: [id number] NAME: RICK MARTINEZ ROOM: 13 Age: 41 Sex: M Admission Date: 03/20/2017 : 1975 Attending Physician: Justin Gray M.D. Admitting Physician: Justin Gray M.D. Primary Care Physician: Primary Care Physician No HISTORY AND PHYSICAL The patient is a 41-year-old male admitted to [address] [place] [address] on 03/20/2017 for suicidal ideation. Patient had a recent admission on 03/13/2017 where a full history and physical was completed. That history and physical has been reviewed. No changes need to be made. Dictated by... Rafael Medina/james TD: 03/21/2017 14:52 JOB #: [id number] HISTORY AND PHYSICAL Page 1 of 1 X UMAIR EVANGELISTA APRN X HISTORY AND PHYSICAL
--- NOTE | ~2017-03-20 | PA ---
Unit #: [id number] #: [id number] Patient: RICK MARTINEZ [id number] [facility] [address] [place] [address] [id number] I MR#: [id number] NAME: RICK MARTINEZ ROOM: P113 Age: 41 Sex: M Admission Date: 03/20/2017 : 1975 Date of Assessment: 03/21/2017 Attending Physician: Justni Gray M.D. Admitting Physician: Justin Gray M.D. Primary Care Physician: Primary Care Physician No PSYCHIATRIC ASSESSMENT IDENTIFYING INFORMATION The patient is a 41-year-old male just discharged from his facility on 03/16/2017. He returns claiming to be suicidal. INFORMANT(S) Patient. RELIABILITY Poor. CHIEF COMPLAINT None given. HISTORY OF PRESENT ILLNESS The patient is a 41-year-old male well-known to this physician. He was just discharged on 03/17/2017 but returns claiming to be suicidal. The patient states that upon discharge he "went out to the streets." The patient has been banned from all local homeless facilities. The patient was reporting positive suicidal ideation with plan to shoot himself in the head using a firearm to which he claims to have access. For a more complete history of present illness, please refer to previous dictated notes. PAST PSYCHIATRIC HISTORY Reviewed, no changes. FAMILY HISTORY/SOCIAL HISTORY Reviewed, no changes. MEDICAL HISTORY Reviewed, no changes. MEDICATION HISTORY 1. Seroquel. 2. Norvasc. 3. Proventil. ALLERGIES Penicillin. MENTAL STATUS EXAM At this time, reveals the patient to be a large statured morbidly obese male appearing his stated age. He is in no apparent Unit #: [id number] #: [id number] Patient: RICK MARTINEZ physical distress at time of examination. He is awake, alert, oriented in all spheres. His mood is mildly dysphoric and a bit irritable. His affect congruent. Speech is generally relevant and coherent. There are no gross deficits in memory or cognition noted. Intelligence is judged to be in the low average range based on fund of knowledge. The patient is generally cooperative during interview. He is currently endorsing positive suicidal ideation. He denies homicidal ideation. He denies any psychotic symptoms. His judgement and insight appear to be intact. ASSETS AND LIABILITIES Patient's assets to be assessed. Liabilities, homelessness, profound sociopathy. ADMITTING DIAGNOSES 1. Dysthymic disorder. 2. Malingering. 3. Cannabis use disorder. 4. Alcohol use disorder. 5. Antisocial personality disorder. 6. Obesity. 7. Hypertension. 8. Asthma. PSYCHIATRIC PLAN/TREATMENT GOALS The patient remains hospitalized for safety and stabilization. We will continue previously prescribed medications and to assure the patient's safety, I have ordered room lockout from 6 a.m. to 10 p.m. Patient will participate in appropriate cheng and milieu activities. ESTIMATED LENGTH OF STAY Three to five days. Dictated by... Justin Gray M.D. LANE/james TD: 03/21/2017 12:14 JOB #: [id number] PSYCHIATRIC ASSESSMENT Page 1 of 1 X Justin Gray MD X PSYCHIATRIC ASSESSMENT
--- NOTE | ~2017-03-20 | DS ---
Unit #: [id number] #: [id number] Patient: RICK MARTINEZ [id number] [facility] [address] [place] [address] [id number] MR#: [id number] NAME: RICK MARTINEZ ROOM: [facility] Age: 41 Sex: M Admission Date: 03/20/2017 : 1975 Discharge Date: Attending Physician: Justin Gray M.D. Primary Care Physician: Primary Care Physician No DISCHARGE SUMMARY Discharge date is 03/23/2017. REASON FOR ADMISSION The patient is a 41-year-old male, well known to this physician admitted to the [address] [place] [address] after he had presented to this facility claiming to be suicidal. HOSPITAL COURSE The patient was admitted to the [address] [place] [address] and placed on suicide precautions. Room lockout was ordered given concerns about the patient's potential to act-out. The patient's stay in the hospital was a brief and uneventful one. He requested discharge to take place on the morning of 03/23/2017, so that he could attend an appointment at [facility]. Discharge was ordered. FINAL DIAGNOSES Dysthymic disorder, malingering, obesity, hypertension, asthma. DISPOSITION ON DISCHARGE The patient is discharged on the following medications: Seroquel 300 mg at bedtime for mood stabilization, Norvasc 5 mg daily for hypertension, and Proventil HFA 2 puffs q.4 hours p.r.n. shortness of air. DISCHARGE INSTRUCTIONS No dietary or physical restrictions were placed on the patient at the time of discharge. PROGNOSIS His prognosis remains guarded. Dictated by... Justin Gray M.D. CB/alex TD: 03/22/2017 13:49 JOB #: [id number] Unit #: [id number] #: [id number] Patient: RICK MARTINEZ DISCHARGE SUMMARY Page 1 of 1 X Justin Gray MD X DISCHARGE SUMMARY
== END 2017-03-23 14:20 | disposition home or self-care (01) | DRG 881 ==
LOC: P1S 19:13
DX: F34.1 Dysthymic disorder (principal); R45.851 Suicidal ideations; I10 Essential (primary) hypertension; Z76.5 Malingerer [conscious simulation]; F12.10 Cannabis abuse, uncomplicated; F10.10 Alcohol abuse, uncomplicated; F60.2 Antisocial personality disorder; E66.9 Obesity, unspecified; J45.909 Unspecified asthma, uncomplicated; Z88.0 Allergy status to penicillin; R09.3 Abnormal sputum; Z68.34 Body mass index [BMI] 34.0-34.9, adult

== ENCOUNTER 2017-04-03 17:10 | Inpatient (IN) | payer MEDICARE, MEDICAID ==
[~2017-04-03] VITALS: Ht 190.5 cm; Wt 89.4 kg
--- NOTE | ~2017-04-03 | PN ---
Unit #: [id number] #: [id number] Patient: RICK MARTINEZ [id number] [facility] [address] [place] [address] [id number] MR#: [id number] NAME: RICK MARTINEZ ROOM: 32 Age: 41 Sex: M Admission Date: 04/03/2017 : 1975 Attending Physician: Justin Gray M.D. Admitting Physician: Justin Gray M.D. Primary Care Physician: Primary Care Physician Kimberlee MONTAÑO PROGRESS NOTES DATE 04/05/2017 DISCUSSION The patient continues to express feelings of hopelessness and suicidal ideation related to his current social situation. I have again attempted to redirect the patient's expectations of inpatient care but he remains on suicide precautions given his ongoing threats of self-harm. Dictated by... Justin Gray M.D. CB/abi TD: 04/06/2017 01:17 JOB #: [id number] DANYEL MODI NOTES Page 1 of 1 X Justin Gray MD PROGRESS NOTE
--- NOTE | ~2017-04-03 | HP ---
Unit #: [id number] #: [id number] Patient: RICK MARTINEZ [id number] [facility] [address] [place] [address] [id number] MR#: [id number] NAME: RICK MARTINEZ ROOM: 30 Age: 41 Sex: M Admission Date: 04/03/2017 : 1975 Attending Physician: Justin Gray M.D. Admitting Physician: Justin Gray M.D. Primary Care Physician: Primary Care Physician No HISTORY AND PHYSICAL The patient is a 41-year-old male admitted to [address] [place] [address] on 04/03/2017 for suicidal ideation. Patient had a recent admission on 03/13/2017 where a full history and physical was completed. That history and physical has been reviewed. No changes need to be made. Dictated by... Rafael Medina/james TD: 04/04/2017 15:30 JOB #: [id number] HISTORY AND PHYSICAL Page 1 of 1 X UMAIR EVANGELISTA APRN X HISTORY AND PHYSICAL
--- NOTE | ~2017-04-03 | DS ---
Unit #: [id number] #: [id number] Patient: RICK MARTINEZ [id number] [facility] [address] [place] [address] [id number] MR#: [id number] NAME: RICK MARTINEZ ROOM: [facility] Age: 41 Sex: M Admission Date: 04/03/2017 : 1975 Discharge Date: 04/07/2017 Attending Physician: Justin Gray M.D. Primary Care Physician: Primary Care Physician No DISCHARGE SUMMARY REASON FOR ADMISSION The patient is a 41-year-old male, admitted to the [address] [place] [address] unit once again claiming to be suicidal. HOSPITAL COURSE The patient was admitted to the [address] [place] [address] and placed on suicide precautions. He was continued on previously prescribed home medications. His stay in the hospital was a fairly typical one and by 04/03 the patient was requesting discharge to take place the following day and it was so ordered. DISCHARGE DIAGNOSES [place] I Dysthymic disorder. Malingering. [place] II [place] III Obesity. [place] IV [place] V DISPOSITION ON DISCHARGE The patient is discharged on the following medications: 1. Norvasc 5 mg daily for hypertension 2. Proventil HFA two puffs q.4h for asthma 3. Seroquel 300 mg at bedtime for mood stabilization PROGNOSIS The patient's prognosis is considered fair. DIET AND ACTIVITY No dietary or physical restrictions were placed on the patient at the time of discharge. Followup will take place through the auspices of community mental health resources. Dictated by... Justin Gray M.D. Unit #: [id number] #: [id number] Patient: RICK MARTINEZ LANE/uyen TD: 04/08/2017 09:57 JOB #: [id number] DISCHARGE SUMMARY Page 1 of 1 X Justin Gray MD X DISCHARGE SUMMARY
--- NOTE | ~2017-04-03 | PA ---
Unit #: [id number] #: [id number] Patient: RICK MARTINEZ [id number] [facility] [address] [place] [address] [id number] MR#: [id number] NAME: RICK MARTINEZ ROOM: 30 Age: 41 Sex: M Admission Date: 04/03/2017 : 1975 Date of Assessment: 04/04/2017 Attending Physician: Justin Gray M.D. Admitting Physician: Justin Gray M.D. Primary Care Physician: Primary Care Physician No PSYCHIATRIC ASSESSMENT IDENTIFYING INFORMATION The patient is a 41-year-old male admitted to the [address] [place] [address] Unit claiming to be suicidal. CHIEF COMPLAINT "Things aren't going well out there." INFORMANT Patient, reliability is fair. HISTORY OF PRESENT ILLNESS The patient is a 41-year-old male well known to this physician. He is admitted after he presented to this facility claiming to be suicidal with plan to shoot himself. He claims to have access to a firearm. The patient has been homeless for sometime and states that he is awaiting housing from [facility]. He continues to endorse positive suicidal ideation during today's interview. He denies abuse of any psychoactive substances. He denies recent changes with appetite. He has no prior history of actual suicide attempts despite multiple admissions to this facility. For more complete history of present illness, please refer to previously dictated notes. PAST PSYCHIATRIC HISTORY Reviewed, no changes. PAST MEDICAL HISTORY Reviewed, no changes. MEDICATIONS Seroquel, Norvasc, Proventil HFA. ALLERGIES Penicillin and milk. FAMILY HISTORY Reviewed, no changes. SOCIAL HISTORY Reviewed, no changes. MENTAL STATUS EXAMINATION Examination at this time reveals the patient to be a large-statured obese male appearing his stated age. He is in no apparent Unit #: [id number] #: [id number] Patient: RICK MARTINEZ physical distress at the time of examination. He is awake, alert, and oriented in all spheres. His mood is dysphoric, his affect blunted. Speech is generally well-coherent. There are no gross deficits in memory or cognition noted. Intelligence is judged to be in the low average range based on fund of knowledge. The patient is generally cooperative during interview. He is currently endorsing positive suicidal ideation. He denies homicidal ideation. He denies any psychotic symptoms. His judgment and insight appear to be reasonably intact. ASSETS AND LIABILITIES The patient's assets: Motivation for change. Liabilities: Lack of resource. DIAGNOSTIC IMPRESSION 1. Dysthymic disorder. 2. Antisocial personality disorder. 3. Obesity. 4. Hypertension. 5. Chronic obstructive pulmonary disease. TREATMENT PLAN The patient remains hospitalized for safety and stabilization. We will continue previously prescribed medications. ESTIMATED LENGTH OF STAY 3 to 5 days. Suicide precautions are of course in place. Dictated by... Justin Gray M.D. Lynda TD: 04/04/2017 12:45 JOB #: [id number] PSYCHIATRIC ASSESSMENT Page 1 of 1 X Justin Gray MD X PSYCHIATRIC ASSESSMENT
== END 2017-04-07 09:50 | disposition home or self-care (01) | DRG 881 ==
LOC: P1S 20:55
DX: F34.1 Dysthymic disorder (principal); R45.851 Suicidal ideations; I10 Essential (primary) hypertension; E66.9 Obesity, unspecified; F60.2 Antisocial personality disorder; J44.9 Chronic obstructive pulmonary disease, unspecified; Z88.0 Allergy status to penicillin; Z76.5 Malingerer [conscious simulation]

== ENCOUNTER 2017-04-17 20:00 | Inpatient (IN) | payer MEDICARE, MEDICAID ==
[~2017-04-17] VITALS: Ht 195.6 cm; Wt 137.9 kg
--- NOTE | ~2017-04-17 | HP ---
Unit #: [id number] #: [id number] Patient: PREMA MARTINEZ [id number] [facility] [address] [place] [address] [id number] MR#: [id number] NAME: PREMA MARTINEZ ROOM: P123 Age: 41 Sex: M Admission Date: 04/18/2017 : 1975 Attending Physician: Justin Gray M.D. Admitting Physician: Justin Gray M.D. Primary Care Physician: Generic Doctor Not In System HISTORY AND PHYSICAL HISTORY OF PRESENT ILLNESS Prema is a 41-year-old male admitted to [address] [place] [address] on 04/18/2017 for suicidal ideations and threatening suicide. PAST MEDICAL HISTORY 1. Obesity. 2. COPD. 3. Hypertension. PAST SURGICAL HISTORY Left arm surgical repair after a fracture. ALLERGIES Penicillin. SOCIAL HISTORY He smokes 1/2 pack of cigarettes daily. Denies alcohol or illegal drug use. He is currently single and homeless. FAMILY HISTORY Noncontributory. REVIEW OF SYSTEMS CONSTITUTIONAL: No fever or chills. HEENT: Denies any sore throat, ear pain or runny nose. CARDIOVASCULAR: Denies chest pain, irregular heart rhythm or palpitations. CHEST: Denies shortness of breath or cough. No hemoptysis. GASTROINTESTINAL: Denies nausea, vomiting, diarrhea or chronic constipation. ENDOCRINE: Denies history of increased thirst or urination. No recent significant weight loss or gain. GENITOURINARY: Denies dysuria, frequency, or hematuria. SKIN: Denies any rashes. HEMATOLOGIC: Denies history of increased bleeding or bruising. MUSCULOSKELETAL: Denies any hot, swollen joints. No generalized muscle pain. NEUROLOGIC: Denies problems with vision or speech. No frequent, severe headaches. No numbness, tingling or weakness in any extremities. Denies loss of bladder or bowel control. CURRENT MEDICATIONS None. Unit #: [id number] #: [id number] Patient: PREMA MARTINEZ PHYSICAL EXAMINATION GENERAL: Alert, oriented, in no acute distress. VITAL SIGNS: Blood pressure 118/72, heart rate 72, respirations 16, temperature 98.2. HEIGHT: 6 feet 5. WEIGHT: 304 pounds. SKIN: Warm and dry without rash or lesion. HEENT: Normocephalic. TMs not viewed. Oral and nasal passages clear. Conjunctivae clear. PERRLA. EOMs intact. NECK: Supple without lymphadenopathy or thyromegaly. HEART: Regular rate and rhythm without murmur. LUNGS: Clear. ABDOMEN: Soft, nontender, without masses or hepatosplenomegaly. : Not done. EXTREMITIES: No evidence of cyanosis, clubbing or edema. Moves all without focal deficit. NEUROLOGICAL: Grossly within normal limits. Cranial Nerves: II: Visual javier are intact. III, IV AND : Extraocular movements are intact. Pupils are equal, round and reactive to light. V: Facial sensation is grossly normal. VII: Facial movements and expression are normal. VIII: Auditory acuity grossly intact. IX, X: Uvula is midline. Phonation is normal. XI: Patient shrugs shoulders and turns head normally. XII: Tongue protrudes in the midline. Sensory and Motor Function: Sensory and motor sensation is grossly normal. Motor: moves all extremities well. Coordination: Gait is normal. Deep Tendon Reflexes: Intact. IMPRESSION 1. Psychiatric admission. 2. Obesity. 3. Chronic obstructive pulmonary disease. 4. Hypertension. RECOMMENDATIONS PSYCHIATRIC: Per psychiatrist. MEDICAL: No contraindication to participate in facility's activities. MEDICAL PROGNOSIS Good. MEDICAL CONDITION Stable. Dictated by... Rafael Peterson/james TD: 04/18/2017 16:30 JOB #: [id number] Unit #: [id number] #: [id number] Patient: PREMA MARTINEZ HISTORY AND PHYSICAL Page 1 of 1 X CESIA FUNES APRN HISTORY AND PHYSICAL
--- NOTE | ~2017-04-17 | PA ---
Unit #: [id number] #: [id number] Patient: RICK MARTINEZ [id number] [facility] [address] [place] [address] [id number] MR#: [id number] NAME: RICK MARTINEZ ROOM: P123 Age: 41 Sex: M Admission Date: 04/18/2017 : 1975 Date of Assessment: 04/18/2017 Attending Physician: Justin Gray M.D. Admitting Physician: Justin Gray M.D. Primary Care Physician: Generic Doctor Not In System PSYCHIATRIC ASSESSMENT IDENTIFYING INFORMATION The patient is a 41-year-old male well-known to this physician. He was just discharged from this facility on 04/07/17 but returns complaining of suicidal ideation. INFORMANT(S) Patient and chart. RELIABILITY Fair. CHIEF COMPLAINT None given. HISTORY OF PRESENT ILLNESS The patient is a 41-year-old male well-known to this physician from seemingly innumerable previous admissions to this facility. He returns having initially presented to the [facility] complaining of suicidal ideation. The patient remains homeless and complains of "people don't understand me." He was reporting positive suicidal ideation with plan to shoot himself in the head. For a more complete history of present illness, please refer to previous dictated notes. PAST PSYCHIATRIC HISTORY Reviewed, no changes. FAMILY HISTORY/SOCIAL HISTORY Reviewed, no changes. MEDICAL HISTORY Reviewed, no changes. MEDICATION HISTORY Seroquel. ALLERGIES Penicillin. MENTAL STATUS EXAM At this time, reveals the patient to be an obese, large statured male appearing his stated age. He is in no apparent physical distress at time of examination. He is awake, alert, oriented in all spheres. His mood is dysphoric. His affect blunted. Speech is generally Unit #: [id number] #: [id number] Patient: RICK MARTINEZ relevant and coherent. There are no gross deficits in memory or cognition noted. Intelligence is judged to be in the average range based on fund of knowledge. The patient is cooperative throughout the interview. He reports ongoing suicidal ideation with plan to shoot himself. He denies homicidal ideation. He denies any psychotic symptoms. His judgement and insight appear to be reasonably intact. ASSETS AND LIABILITIES Patient's assets to be assessed. Liabilities, homelessness, lack of resources, malingering, sociopathy. DIAGNOSTIC IMPRESSION 1. Dysthymic disorder. 2. Antisocial personality disorder. 3. Malingering. PSYCHIATRIC PLAN/TREATMENT GOALS The patient remains hospitalized for safety and stabilization. I will reluctantly continue the patient's Seroquel though it is not my feeling that the patient necessarily has a psychiatric illness that is amenable to pharmacotherapeutic intervention. We will attempt to ensure the patient's safety with suicide precautions. ESTIMATED LENGTH OF STAY Three to four days. Dictated by... Justin Gray M.D. LANE/james TD: 04/18/2017 12:20 JOB #: [id number] PSYCHIATRIC ASSESSMENT Page 1 of 1 X Justin Gray MD X PSYCHIATRIC ASSESSMENT
--- NOTE | ~2017-04-17 | PN ---
Unit #: [id number] #: [id number] Patient: RICK MARTINEZ [id number] [facility] [address] [place] [address] [id number] MR#: [id number] NAME: RICK MARTINEZ ROOM: [facility] Age: 41 Sex: M Admission Date: 04/18/2017 : 1975 Attending Physician: Justin Gray M.D. Admitting Physician: Justin Gray M.D. Primary Care Physician: Michael Doctor Not In System [facility] PROGRESS NOTES DATE 04/20/2017 DISCUSSION The patient offers no new complaints today, he is surprisingly active within the therapeutic milieu, and continues to endorse feelings of hopelessness and suicidal ideation. Dictated by... Justin Gray M.D. CB/uyen TD: 04/21/2017 06:26 JOB #: [id number] [facility] PROGRESS NOTES Page 1 of 1 X Justin Gray MD X PROGRESS NOTE
--- NOTE | ~2017-04-17 | PN ---
Unit #: [id number] #: [id number] Patient: RICK MARTINEZ [id number] [facility] [address] [place] [address] [id number] MR#: [id number] NAME: RICK MARTINEZ ROOM: P123 Age: 41 Sex: M Admission Date: 04/18/2017 : 1975 Attending Physician: Justin Gray M.D. Admitting Physician: Justin Gray M.D. Primary Care Physician: Generic Doctor Not In System [facility] PROGRESS NOTES DATE 04/19/2017 DISCUSSION The patient is abed resting comfortably today. Staff reports no management issues and states that he has been compliant with the medications and cheng routing. He is continuing to endorse positive hopelessness and suicidal ideation. Dictated by... Justin Gray M.D. CB/abi TD: 04/20/2017 00:08 JOB #: [id number] [facility] PROGRESS NOTES Page 1 of 1 X Justin Gray MD PROGRESS NOTE
--- NOTE | ~2017-04-17 | DS ---
Unit #: [id number] #: [id number] Patient: RICK MARTINEZ [id number] [facility] [address] [place] [address] [id number] MR#: [id number] NAME: RICK MARTINEZ ROOM: [facility] Age: 42 Sex: M Admission Date: 04/18/2017 : 1975 Discharge Date: 04/22/2017 Attending Physician: Justin Gray M.D. Primary Care Physician: Generic Doctor Not In System DISCHARGE SUMMARY REASON FOR ADMISSION The patient is a 41-year-old single male, admitted to the [address] [place] [address] unit claiming to be suicidal. HOSPITAL COURSE The patient was admitted to the [address] [place] [address] unit and placed on suicide precautions. Seroquel was continued. The patient's stay in the hospital was a brief and uneventful one. He remained seclusive to room with little participation within the therapeutic milieu, but was no management issue. By 04/22/2017, discharge was ordered. FINAL DIAGNOSES Dysthymic disorder, malingering, obesity. DISPOSITION ON DISCHARGE The patient is discharged on the following psychotropic medications: Seroquel 300 mg at bedtime for mood stabilization. DISCHARGE INSTRUCTIONS No dietary or physical restrictions were placed upon the patient at the time of discharge. FOLLOWUP Followup will take place through the auspices of community mental health resources. PROGNOSIS The patient's prognosis is considered guarded. Dictated by... Justin Gray M.D. LANE/alex TD: 04/22/2017 20:14 JOB #: [id number] Unit #: [id number] #: [id number] Patient: RICK MARTINEZ DISCHARGE SUMMARY Page 1 of 1 X Justin Gray MD X DISCHARGE SUMMARY
--- NOTE | ~2017-04-17 | PN ---
Unit #: [id number] #: [id number] Patient: RICK MARTINEZ [id number] [facility] [address] [place] [address] [id number] MR#: [id number] NAME: RICK MARTINEZ ROOM: [facility] Age: 41 Sex: M Admission Date: 04/18/2017 : 1975 Attending Physician: Justin Gray M.D. Admitting Physician: Justin Gray M.D. Primary Care Physician: Michael Doctor Not In System [facility] PROGRESS NOTES DATE 04/21/2017 DISCUSSION The patient is abed with little participation within the therapeutic milieu. He is reporting reduction in suicidal ideation, and I expect a.m. discharge. Dictated by... Justin Gray M.D. CB/bzg TD: 04/21/2017 14:41 JOB #: [id number] [facility] PROGRESS NOTES Page 1 of 1 X Justin Gray MD PROGRESS NOTE
[2017-04-20 09:42] LABS: BASOPHIL% 0.3 % (0-2.5); EOSINOPHIL# 0.1 X10e3 (0-0.7); EOSINOPHIL% 2.3 % (0.0-7.0); HEMATOCRIT 41.6 % (38.0-50.0); LYMPHOCYTE% 39.2 % (17.0-45.0); MEAN CELL VOLUME 91.9 FL (83-96); MEAN CORPUSCULAR HEMOGLOBIN 30.9 PG (28-34); MEAN CORPUSCULAR HGB CONC 33.7 g/dL (30-36); MEAN PLATELET VOLUME 7.8 FL (6.5-11.5); MONOCYTE# 0.4 X10e3 (0-1.0); MONOCYTE% 8.5 % (3.0-12.0); NEUTROPHIL# 2.5 X10e3 (1.5-7.1); NEUTROPHIL% 49.7 % (40-75); PLATELET COUNT 239 X10e3 (140-420); RED BLOOD COUNT 4.53 X10e (3.90-5.60); RED CELL DISTRIBUTION WIDTH 14.7 % (11.0-15.5)
[2017-04-20 09:51] LABS: DIFF IND NO
[2017-04-20 11:05] LABS: ALBUMIN SERUM 3.4 g/dL (3.5-5.0); BILIRUBIN,TOTAL 0.4 mg/dL (0.2-2.0); CALCIUM SERUM 8.9 mg/dL (8.4-10.2); CREATININE SERUM 0.8 mg/dL (0.6-1.4); GLOM FILT RATE Estimated 128.7 mL/min (>60); POTASSIUM 4.4 mmol/L (3.5-5.1); PROTEIN TOTAL SERUM 6.2 g/dL (6.0-8.3)
== END 2017-04-22 14:50 | disposition home or self-care (01) | DRG 881 ==
LOC: P1S 04-18 00:42
PROVIDERS: Specialist
DX: F34.1 Dysthymic disorder (principal); R45.851 Suicidal ideations; I10 Essential (primary) hypertension; F60.2 Antisocial personality disorder; Z76.5 Malingerer [conscious simulation]; Z88.0 Allergy status to penicillin; F17.210 Nicotine dependence, cigarettes, uncomplicated; E66.9 Obesity, unspecified; J44.9 Chronic obstructive pulmonary disease, unspecified; Z68.36 Body mass index [BMI] 36.0-36.9, adult
CPT/HCPCS: 80053; 85025